=== PATIENT | female | born 1945 ===

== ENCOUNTER → 2016-04-15 | Outpatient (CLI) | payer MEDICARE ==
[2016-04-15 16:10] LABS: ANION GAP 19.6 MEQ/L (3-15)
== END ==
LOC: LAB 15:38
PROVIDERS: ATTEND Family Medicine
DX: I10 Essential (primary) hypertension (principal)
CPT/HCPCS: 36415; 80048

== ENCOUNTER → 2016-05-06 | Outpatient (REF) | payer MEDICARE ==
[2016-05-06 16:22] LABS: BASOPHILS % (AUTO) 0 % (0-2); EOSINOPHILS # (AUTO) 0.2 10^3uL; EOSINOPHILS % (AUTO) 2 % (0-4); LYMPHOCYTES # (AUTO) 3.4 X10^3; MEAN CORPUSCULAR HEMOGLOBIN 24.8 PG (26.0-34.0); MEAN CORPUSCULAR HGB CONC 32.4 g/dL (31.0-37.0); MEAN CORPUSCULAR VOLUME 77 FL (80-100); MEAN PLATELET VOLUME 11.2 FL (6.0-9.5); MONOCYTES % (AUTO) 8 % (3-11); NEUTROPHILS # (AUTO) 7.9 X10^3; NEUTROPHILS % (AUTO) 63 % (51-67); PLATELET COUNT 361 10^3uL (150-450); WHITE BLOOD COUNT 12.49 10^3uL (4.0-11.0)
[2016-05-06 16:28] LABS: ALBUMIN 4.6 g/dL (3.4-5.0); ANION GAP 16.2 MEQ/L (3-15); CALCULATED IONIZED CALCIUM 4.2 mg/dL (3.8-4.6); TOTAL PROTEIN 7.5 g/dL (6.4-8.5)
== END ==
LOC: LAB 16:04
PROVIDERS: ATTEND Family Medicine
DX: I70.213 Atherosclerosis of native arteries of extremities with intermittent claudication, bilateral legs (principal); R53.83 Other fatigue; E78.4 Other hyperlipidemia; I10 Essential (primary) hypertension
CPT/HCPCS: 80053; 83735; 84443; 85025

== ENCOUNTER → 2016-05-12 | Outpatient (CLI) | payer MEDICARE | LOC: LAB 14:49 | PROVIDERS: ATTEND Family Medicine | DX: R53.83 Other fatigue (principal); R74.8 Abnormal levels of other serum enzymes; D64.9 Anemia, unspecified | CPT/HCPCS: 36415; 82306; 82607; 82728; 82746; 82977; 83540; 83550; 83970 ==